=== PATIENT | male | born 1950 | race Caucasian/White ===

== ENCOUNTER 2019-11-09 12:14 | Emergency (ER) | payer BC, SELFPAY ==
[2019-11-09] MEDS ORDERED: LIDOCAINE 1% W/EPI 1:100,000 MDV 50 ML VIAL ONE (13:11)
--- NOTE | 2019-11-09 15:20 | EDPHYS ---
Physician Documentation [facility] Name: Ghulam Koehler Age: 69 yrs Sex: Male : 1950 Arrival Date: 11/09/2019 Time: 12:18 Bed 19 Private MD: ED Physician Mert Candelario HPI: 11/08 12:55 This 69 yrs old Male presents to ER via Ambulatory with complaints of Fall cp Injury. 13:00 Details of fall: The patient fell from an upright position, while walking, while cp carrying case of [employer] drinks. Onset: The symptoms/episode began/occurred today. Associated injuries: The patient sustained injury to the head, laceration, of the above left eye and above right eye, swelling, tenderness. 13:00 Severity of symptoms: in the emergency department the symptoms are unchanged, No LOC, cp no nausea/vomiting, no c/o headache. Mild pain to area of lacerations. Historical: - Allergies: 12:36 No Known Allergies; ss - Immunization history:: Adult Immunizations up to date. - Social history:: Smoking status: Patient denies any tobacco usage or history of. ROS: 13:20 Constitutional: Negative for body aches, chills, fever. cp 13:20 Eyes: Negative for injury, pain, redness, and discharge. cp 13:20 Neck: Negative for pain with movement, pain at rest. 13:20 Cardiovascular: Negative for chest pain, palpitations. 13:20 Respiratory: Negative for cough, shortness of breath, wheezing. 13:20 Abdomen/GI: Negative for abdominal pain, nausea, vomiting, and diarrhea. 13:20 Back: Negative for pain at rest, pain with movement. 13:20 Skin: Positive for laceration(s), of the above right eye and above left eye. 13:20 Neuro: Negative for altered mental status, dizziness, headache, loss of consciousness, syncope, weakness. 13:20 All other systems are negative. Exam: 13:25 Constitutional: The patient appears in no acute distress, alert, awake, cp non-diaphoretic, well developed, well nourished. 13:25 Head/face: Noted is a laceration(s), that is linear, of the above left eye and above cp right eye, swelling, that is mild, tenderness, that is mild, Sinus tenderness, is not appreciated. 13:25 Eyes: Pupils: equal, round, and reactive to light and accomodation, Extraocular movements: intact throughout, Conjunctiva: normal, no exudate, no injection, Lids and lashes: appear normal, bilaterally. 13:25 ENT: External ear(s): are unremarkable, Nose: is normal, Posterior pharynx: Airway: no evidence of obstruction, patent. 13:25 Neck: C-spine: vertebral tenderness, is not appreciated, crepitus, is not appreciated, ROM/movement: is normal, is supple, without pain, no range of motions limitations. 13:25 Chest/axilla: Inspection: normal, Palpation: is normal, no crepitus, no tenderness. 13:25 Cardiovascular: Rate: normal. 13:25 Respiratory: the patient does not display signs of respiratory distress, Respirations: normal, no use of accessory muscles, labored breathing, is not present. 13:25 Abdomen/GI: Exam negative for discomfort, distension, guarding, Inspection: abdomen appears normal. 13:25 Back: pain, is absent, ROM is normal. 13:25 Musculoskeletal/extremity: Exam is negative for decreased range of motion, deformity, injury. 13:25 Skin: injury, laceration(s), the wound is approximately 2 cm(s), of the above right eye, the second wound is approximately 3 cm(s), of the above left eye, that can be described as clean, no foreign body, linear, with mild bleeding. 13:25 Neuro: Orientation: to person, place \T\ time. Mentation: is normal, Cerebellar function: is grossly normal, Motor: moves all fours, strength is normal, Sensation: is normal, Gait: is steady, at a normal pace, without difficulty. Vital Signs: 12:30 BP 162 / 75; Pulse 82; Resp 16; Temp 98.3(TE); Pulse Ox 98% on R/A; Weight 99.79 kg; ss Height 5 ft. 10 in. (177.80 cm); Pain 4/10; 14:30 BP 158 / 67; Pulse 78; Resp 18; Pulse Ox 98% on R/A; em 12:30 Body Mass Index 31.57 (99.79 kg, 177.80 cm) ss Laceration: 15:20 Wound Repair of 2cm ( 0.8in ) subcutaneous laceration to above right eye. Linear cp shaped.. Distal neuro/vascular/tendon intact. Anesthesia: Wound infiltrated with 2 mls of 1% lidocaine w/ Epi. Wound prep: Moderate cleansing by me. Skin closed with 3 6-0 Prolene using simple sutures and sterile technique. Dressed with Bacitracin. Patient tolerated well. 15:20 Wound Repair of 3cm ( 1.2in ) subcutaneous laceration to above left eye. Linear cp shaped.. Distal neuro/vascular/tendon intact. Anesthesia: Wound infiltrated with 3 mls of 1% lidocaine w/ Epi. Wound prep: Moderate cleansing by me. Skin closed with 6 6-0 Prolene using simple sutures and sterile technique. Dressed with Bacitracin. Patient tolerated well. MDM: 12:36 Patient medically screened. cp 15:19 Data reviewed: vital signs, nurses notes, and as a result, I will discharge patient. cp 15:19 Counseling: I had a detailed discussion with the patient and/or guardian regarding: the cp historical points, exam findings, and any diagnostic results supporting the discharge/admit diagnosis, to return to the emergency department if symptoms worsen or persist or if there are any questions or concerns that arise at home. Response to treatment: the patient's symptoms have markedly improved after treatment, and as a result, I will discharge patient. 11/08 12:48 Order name: Dressing - Wound; Complete Time: 15:17 cp 11/08 12:48 Order name: Gloves, Sterile; Complete Time: 15:26 cp 11/08 12:48 Order name: Setup Suture Tray; Complete Time: 13:06 cp 11/08 15:19 Order name: Wound dressing; Complete Time: 15:26 cp Administered Medications: 15:00 Drug: Lidocaine-Epinephrine -1%: (1:100,000) 10 ml {Note: administered by PA. Charly} em Volume: 20 ml; Route: Infiltration; 15:17 Follow up: Response: No adverse reaction; Pain is decreased em Disposition: 15:35 Chart complete. cp Disposition: 11/09/19 15:19 Discharged to Home. Impression: Laceration without foreign body of unspecified part of head. - Condition is Stable. - Discharge Instructions: Facial Laceration. - Prescriptions for Keflex 500 mg Oral Capsule - take 1 capsule by ORAL route every 8 hours for 7 days; 21 capsule. - Medication Reconciliation Form, Thank You Letter, Antibiotic Education, Prescription Opioid Use form. - Follow up: Private Physician; When: 1 week; Reason: Staple/Suture removal. - Problem is new. - Symptoms have improved. Signatures: Thor Bautista RN Katy Bettencourt RN RN ss Charly Adan PA PA cp Corrections: (The following items were deleted from the chart) 15:29 15:19 11/09/2019 15:19 Discharged to Home. Impression: Laceration without foreign body em of unspecified part of head. Condition is Stable. Forms are Medication Reconciliation Form, Thank You Letter, Antibiotic Education, Prescription Opioid Use. Follow up: Private Physician; When: 1 week; Reason: Staple/Suture removal. Problem is new. Symptoms have improved. cp
--- NOTE | 2019-11-09 15:20 | ER ---
Nurse's Notes [facility] Name: Ghulam Koehler Age: 69 yrs Sex: Male : 1950 Arrival Date: 11/09/2019 Time: 12:18 Bed 19 Private MD: Diagnosis: Laceration without foreign body of unspecified part of head Presentation: 11/08 12:30 Chief complaint: Patient states: Mechanical fall from standing at 1129. Abrasion noted ss to L king. small laceration noted to bilateral eyebrows from glasses. Denies LOC. Coronavirus screen: Client denies travel out of the [place] in the last 14 days. Ebola Screen: Patient denies exposure to infectious person. Patient denies travel to an Ebola-affected area in the 21 days before illness onset. Initial Sepsis Screen: Does the patient meet any 2 criteria? No. Patient's initial sepsis screen is negative. Does the patient have a suspected source of infection? No. Patient's initial sepsis screen is negative. Risk Assessment: Do you want to hurt yourself or someone else? Patient reports no desire to harm self or others. Onset of symptoms was November 09, 2019. 12:30 Method Of Arrival: Ambulatory ss 12:30 Acuity: BLAYNE 4 ss Historical: - Allergies: 12:36 No Known Allergies; ss - Immunization history:: Adult Immunizations up to date. - Social history:: Smoking status: Patient denies any tobacco usage or history of. Screenin:35 Abuse screen: Denies threats or abuse. Nutritional screening: No deficits noted. em Tuberculosis screening: No symptoms or risk factors identified. Fall Risk Fall in past 12 months (25 points). Total Awad Fall Scale indicates Low Risk Score (25-44 pts). Side Rails Up X 2. Assessment: 12:45 General: Appears in no apparent distress. comfortable, Behavior is calm, cooperative, em appropriate for age. Pain: Complains of pain in middle aspect of right eyebrow and middle aspect of left eyebrow Pain currently is 4 out of 10 on a pain scale. Neuro: Level of Consciousness is awake, alert, obeys commands, Oriented to person, place, time, situation, Appropriate for age. Cardiovascular: Capillary refill < 3 seconds Patient's skin is warm and dry. Respiratory: Airway is patent Respiratory effort is even, unlabored, Respiratory pattern is regular, symmetrical. Derm: Skin is intact, is healthy with good turgor, Skin is pink, warm \T\ dry. Musculoskeletal: Capillary refill < 3 seconds, Range of motion: intact in all extremities. Injury Description: Abrasion sustained to left king Laceration sustained to middle aspect of right eyebrow and middle aspect of left eyebrow. 13:45 Reassessment: Patient appears in no apparent distress at this time. Patient and/or em family updated on plan of care and expected duration. Pain level reassessed. ambulated to the restroom with steady gait. 14:45 Reassessment: Patient appears in no apparent distress at this time. Patient and/or em family updated on plan of care and expected duration. Pain level reassessed. Patient is alert, oriented x 3, equal unlabored respirations, skin warm/dry/pink. Vital Signs: 12:30 BP 162 / 75; Pulse 82; Resp 16; Temp 98.3(TE); Pulse Ox 98% on R/A; Weight 99.79 kg; ss Height 5 ft. 10 in. (177.80 cm); Pain 4/10; 14:30 BP 158 / 67; Pulse 78; Resp 18; Pulse Ox 98% on R/A; em 12:30 Body Mass Index 31.57 (99.79 kg, 177.80 cm) ED Course: 12:18 Patient arrived in ED. mr 12:28 Thor Bautista, RN is Primary Nurse. em 12:31 Charly Adan PA is PHCP. cp 12:31 Mert Candelario MD is Attending Physician. cp 12:35 Patient has correct armband on for positive identification. em 12:36 Triage completed. ss 12:36 Arm band placed on right wrist. ss 15:15 Assist provider with laceration repair on middle aspect of left eyebrow and middle em aspect of right eyebrow that was 2.5 cm. or less using sutures. Set up tray. Performed by Charly MURPHY Dressed with Neosporin, Patient tolerated well. 15:28 Patient did not have IV access during this emergency room visit. em Administered Medications: 15:00 Drug: Lidocaine-Epinephrine -1%: (1:100,000) 10 ml {Note: administered by KATHERINE Parks.} em Volume: 20 ml; Route: Infiltration; 15:17 Follow up: Response: No adverse reaction; Pain is decreased em Outcome: 15:19 Discharge ordered by . avi 15:27 Discharged to home ambulatory. em 15:27 Condition: good 15:27 Discharge instructions given to patient, Instructed on discharge instructions, follow up and referral plans. medication usage, Demonstrated understanding of instructions, follow-up care, medications, Prescriptions given X 1. 15:29 Patient left the ED. em Signatures: Lucille Petersen Edgar, RN RN em Katy Fuller RN RN ss Charly Adan, KATHERINE PA cp
[2019-11-12 18:16] VITALS: TEMP 98.3; O2SAT 98
[2019-11-12 18:17] VITALS: BP 158/67
== END 2019-11-09 15:29 | disposition home or self-care (01) ==
LOC: ER 12:14
PROC: 0JQ10ZZ Repair Face Subcutaneous Tissue and Fascia, Open Approach (ICD-10-PCS; principal; 2019-11-09)
DX: S01.81XA Laceration without foreign body of other part of head, initial encounter (principal); W26.8XXA Contact with other sharp object(s), not elsewhere classified, initial encounter; Y93.01 Activity, walking, marching and hiking; Y92.9 Unspecified place or not applicable
CPT/HCPCS: 99283